=== PATIENT | female | born 1955 | race African-American/Black ===

== ENCOUNTER 2021-08-04 22:49 | Inpatient (IN) | payer MEDICARE, OTHER ==
[~2021-08-04] VITALS: Ht 152.4 cm; Wt 45.4 kg
[2021-08-04] MEDS ORDERED: ZIPRASIDONE MESYLATE 20 MG VIAL IM ONE ×2 (23:09→23:15)
[2021-08-04] MEDS ORDERED: CITA20TA16 PO (23:39)
[2021-08-04] MEDS ORDERED: BENZ1TAB7 PO (23:39)
[2021-08-04] MEDS ORDERED: MELA3TAB52 PO (23:39)
[2021-08-04] MEDS ORDERED: FAMO20TA8 PO (23:39)
[2021-08-04] MEDS ORDERED: TRAZ-182 PO (23:39)
[2021-08-04] MEDS ORDERED: METF-495 PO (23:39)
[2021-08-04] MEDS ORDERED: VALP250C3 PO (23:39)
[2021-08-04] MEDS ORDERED: QUET25TA PO (23:39)
[2021-08-04] MEDS ORDERED: DONE10TA44 PO (23:39)
[2021-08-04] MEDS ORDERED: LISI10TA29 PO (23:39)
[2021-08-04] MEDS ORDERED: AMLO-212 PO (23:39)
[2021-08-04 23:50] LABS: HEMATOCRIT 37.1 % (31.2-41.9); MEAN CORPUSCULAR HEMOGLOBIN 32.5 uug (24.7-32.8); MEAN CORPUSCULAR VOLUME 98.5 fL (75.5-95.3); PLATELET COUNT (AUTO) 172 K/uL (179-408)
[2021-08-05 00:02] LABS: ALANINE AMINOTRANSFERASE 46 U/L (14-59); ALKALINE PHOSPHATASE 73 U/L (50-136); ASPARTATE AMINOTRANSFERASE 34 U/L (15-37); BILIRUBIN,DIRECT 0.1 mg/dL (0.0-0.2); BILIRUBIN,TOTAL 0.1 mg/dL (0.2-1.0); CARBON DIOXIDE 26 mmol/L (21-32); CHLORIDE 105 mmol/L (98-107); CREATININE 0.9 mg/dL (0.6-1.3); GLUCOSE 136 mg/dL (74-106); TOTAL PROTEIN, SERUM 7.6 g/dL (6.4-8.2); UREA NITROGEN, BLOOD 24 mg/dL (7-18)
[2021-08-05 00:03] LABS: ACETAMINOPHEN < 2.0 ug/mL (10-30)
[2021-08-05 00:19] LABS: ETHANOL < 3 MG/DL (0-0)
[2021-08-05] MEDS ORDERED: CLONIDINE HCL 0.1 MG TABLET PO ONE (02:15)
[2021-08-05] MEDS ORDERED: CLONIDINE HCL 0.1 MG TABLET ONE (02:35)
[2021-08-05] MEDS ORDERED: MAG HYDROX/AL HYDROX/SIMETH 30 ML LIQUID UDC PO PRN (03:30)
[2021-08-05] MEDS ORDERED: ZOLPIDEM 5 MG TABLET PO PRN (03:30)
[2021-08-05] MEDS ORDERED: BLOOD SUGAR DIAGNOSTIC 1 EACH STRIP VI ONE (03:30)
[2021-08-05] MEDS ORDERED: MAGNESIUM HYDROXIDE 30 ML LIQUID UDC PO PRN (03:30)
[2021-08-05 03:43] VITALS: BP 154/84
[2021-08-05] MEDS ORDERED: METF-440 PO (06:46)
[2021-08-05 07:45] VITALS: BP 109/55
[2021-08-05] MEDS: DONEPEZIL 10 MG TABLET PO SCH (08:05)
[2021-08-05] MEDS: METFORMIN HCL 500 MG TABLET PO SCH ×2 (08:05→16:23)
[2021-08-05] MEDS: AMLODIPINE 5 MG TABLET PO SCH (08:05)
[2021-08-05] MEDS: FAMOTIDINE 20 MG TABLET PO SCH ×2 (08:05→16:24)
[2021-08-05] MEDS: LISINOPRIL 10 MG TABLET PO SCH ×2 (08:06→16:24)
[2021-08-05] MEDS ORDERED: VALPROIC ACID 250 MG CAPSULE PO SCH (09:00)
[2021-08-05] MEDS ORDERED: METFORMIN XR 500 MG TAB.SR.24H PO SCH (09:00)
[2021-08-05] MEDS: VALPROIC ACID 250 MG CAPSULE PO SCH ×2 (12:00→20:21)
[2021-08-05] MEDS: QUETIAPINE FUMARATE 25 MG TABLET PO SCH ×2 (12:12→21:00)
[2021-08-05] MEDS: busPIRone 5 MG TABLET PO SCH ×2 (12:13→16:24)
[2021-08-05 15:40] VITALS: BP_SYST 111; BP_SYST 144; BP_DIAS 40; BP_DIAS 76
[2021-08-05 19:54] VITALS: BP 157/82
[2021-08-05] MEDS: LORAZEPAM 0.5 MG TABLET PO PRN (23:08)
[2021-08-06 07:30] VITALS: BP 162/78
[2021-08-06] MEDS: LISINOPRIL 10 MG TABLET PO SCH ×2 (08:15→16:51)
[2021-08-06] MEDS: busPIRone 5 MG TABLET PO SCH ×3 (08:15→16:51)
[2021-08-06] MEDS: FAMOTIDINE 20 MG TABLET PO SCH ×2 (08:15→16:50)
[2021-08-06] MEDS: DONEPEZIL 10 MG TABLET PO SCH (08:15)
[2021-08-06] MEDS: VALPROIC ACID 250 MG CAPSULE PO SCH ×2 (08:16→16:51)
[2021-08-06] MEDS: AMLODIPINE 5 MG TABLET PO SCH (08:17)
[2021-08-06 08:19] LABS: THYROID STIMULATING HORMONE 0.745 mIU/mL (0.358-3.740)
[2021-08-06] MEDS: QUETIAPINE FUMARATE 25 MG TABLET PO SCH ×3 (09:11→22:04)
[2021-08-06 15:02] VITALS: BP 151/76
[2021-08-06 20:33] VITALS: BP 107/68
[2021-08-07 07:39] VITALS: BP 142/71
[2021-08-07] MEDS: CYANOCOBALAMIN 1,000 MCG TABLET PO SCH (08:50)
[2021-08-07] MEDS: FAMOTIDINE 20 MG TABLET PO SCH ×2 (08:50→16:54)
[2021-08-07] MEDS: busPIRone 5 MG TABLET PO SCH ×3 (08:50→16:54)
[2021-08-07] MEDS: LISINOPRIL 10 MG TABLET PO SCH ×2 (08:50→16:54)
[2021-08-07] MEDS: DONEPEZIL 10 MG TABLET PO SCH (08:50)
[2021-08-07] MEDS: QUETIAPINE FUMARATE 25 MG TABLET PO SCH ×3 (08:50→20:59)
[2021-08-07] MEDS: VALPROIC ACID 250 MG CAPSULE PO SCH ×2 (08:51→16:55)
[2021-08-07] MEDS: AMLODIPINE 5 MG TABLET PO SCH (08:51)
[2021-08-07 16:05] VITALS: BP 141/74
[2021-08-07 20:01] VITALS: BP 111/69
[2021-08-08 07:56] VITALS: BP 127/53
[2021-08-08] MEDS: CYANOCOBALAMIN 1,000 MCG TABLET PO SCH (08:20)
[2021-08-08] MEDS: FAMOTIDINE 20 MG TABLET PO SCH ×2 (08:20→16:49)
[2021-08-08] MEDS: DONEPEZIL 10 MG TABLET PO SCH (08:21)
[2021-08-08] MEDS: LISINOPRIL 10 MG TABLET PO SCH ×2 (08:21→16:50)
[2021-08-08] MEDS: AMLODIPINE 5 MG TABLET PO SCH (08:21)
[2021-08-08] MEDS: busPIRone 5 MG TABLET PO SCH ×3 (08:21→16:50)
[2021-08-08] MEDS: QUETIAPINE FUMARATE 25 MG TABLET PO SCH ×3 (08:21→20:04)
[2021-08-08] MEDS: VALPROIC ACID 250 MG CAPSULE PO SCH ×2 (08:23→16:51)
[2021-08-08 16:13] VITALS: BP 132/56
[2021-08-08 19:58] VITALS: BP 120/62
[2021-08-08] MEDS: LORAZEPAM 0.5 MG TABLET PO PRN (21:30)
[2021-08-09 07:30] VITALS: BP 158/75
[2021-08-09] MEDS: DONEPEZIL 10 MG TABLET PO SCH (10:30)
[2021-08-09] MEDS: CYANOCOBALAMIN 1,000 MCG TABLET PO SCH (10:30)
[2021-08-09] MEDS: FAMOTIDINE 20 MG TABLET PO SCH ×2 (10:30→17:56)
[2021-08-09] MEDS: AMLODIPINE 5 MG TABLET PO SCH (10:30)
[2021-08-09] MEDS: busPIRone 5 MG TABLET PO SCH ×3 (10:30→17:55)
[2021-08-09] MEDS: QUETIAPINE FUMARATE 25 MG TABLET PO SCH ×3 (10:31→20:33)
[2021-08-09] MEDS: GLUCERNA SHAKE 237 ML CAN PO SCH (10:38)
[2021-08-09] MEDS: LISINOPRIL 10 MG TABLET PO SCH ×2 (11:17→17:54)
[2021-08-09] MEDS: VALPROIC ACID 250 MG CAPSULE PO SCH ×2 (13:29→17:55)
[2021-08-09] MEDS: LORAZEPAM 0.5 MG TABLET PO PRN (15:01)
[2021-08-09] MEDS: ACETAMINOPHEN 325 MG TABLET PO PRN (15:01)
[2021-08-09 16:00] VITALS: BP 139/84
[2021-08-09 20:13] VITALS: BP 135/73
[2021-08-10 08:04] VITALS: BP 138/78
[2021-08-10] MEDS: CYANOCOBALAMIN 1,000 MCG TABLET PO SCH (08:39)
[2021-08-10] MEDS: LISINOPRIL 10 MG TABLET PO SCH ×2 (08:39→17:50)
[2021-08-10] MEDS: busPIRone 5 MG TABLET PO SCH ×3 (08:39→17:50)
[2021-08-10] MEDS: FAMOTIDINE 20 MG TABLET PO SCH ×2 (08:40→17:50)
[2021-08-10] MEDS: AMLODIPINE 5 MG TABLET PO SCH (08:40)
[2021-08-10] MEDS: LORAZEPAM 0.5 MG TABLET PO PRN ×2 (08:40→15:09)
[2021-08-10] MEDS: DONEPEZIL 10 MG TABLET PO SCH (08:40)
[2021-08-10] MEDS: QUETIAPINE FUMARATE 25 MG TABLET PO SCH ×3 (08:40→20:04)
[2021-08-10] MEDS: VALPROIC ACID 250 MG CAPSULE PO SCH (08:42)
[2021-08-10] MEDS: GLUCERNA SHAKE 237 ML CAN PO SCH (08:43)
[2021-08-10 17:17] VITALS: BP 139/71
[2021-08-10] MEDS: DIVALPROEX SPRINKLE 125 MG CAP.SPRINK PO SCH (17:50)
[2021-08-10 19:55] VITALS: BP 136/77
[2021-08-11 07:30] VITALS: BP 149/71
[2021-08-11] MEDS: LORAZEPAM 0.5 MG TABLET PO PRN ×2 (07:47→14:51)
[2021-08-11] MEDS: busPIRone 5 MG TABLET PO SCH ×3 (08:26→16:51)
[2021-08-11] MEDS: DONEPEZIL 10 MG TABLET PO SCH (08:26)
[2021-08-11] MEDS: FAMOTIDINE 20 MG TABLET PO SCH ×2 (08:26→16:51)
[2021-08-11] MEDS: QUETIAPINE FUMARATE 25 MG TABLET PO SCH ×3 (08:26→20:03)
[2021-08-11] MEDS: DIVALPROEX SPRINKLE 125 MG CAP.SPRINK PO SCH ×2 (08:26→16:51)
[2021-08-11] MEDS: CYANOCOBALAMIN 1,000 MCG TABLET PO SCH (08:26)
[2021-08-11] MEDS: LISINOPRIL 10 MG TABLET PO SCH ×2 (08:27→16:52)
[2021-08-11] MEDS: AMLODIPINE 5 MG TABLET PO SCH (08:27)
[2021-08-11] MEDS: GLUCERNA SHAKE 237 ML CAN PO SCH (08:28)
[2021-08-11 16:00] VITALS: BP 134/59
[2021-08-11 19:58] VITALS: BP 145/78
[2021-08-12 07:43] VITALS: BP 148/76
[2021-08-12] MEDS: LORAZEPAM 0.5 MG TABLET PO PRN ×2 (09:03→21:38)
[2021-08-12] MEDS: AMLODIPINE 5 MG TABLET PO SCH (09:41)
[2021-08-12] MEDS: DONEPEZIL 10 MG TABLET PO SCH (09:41)
[2021-08-12] MEDS: CYANOCOBALAMIN 1,000 MCG TABLET PO SCH (09:41)
[2021-08-12] MEDS: busPIRone 5 MG TABLET PO SCH ×3 (09:41→16:18)
[2021-08-12] MEDS: DIVALPROEX SPRINKLE 125 MG CAP.SPRINK PO SCH ×2 (09:42→16:18)
[2021-08-12] MEDS: QUETIAPINE FUMARATE 25 MG TABLET PO SCH ×2 (09:42→20:10)
[2021-08-12] MEDS: LISINOPRIL 10 MG TABLET PO SCH ×2 (09:43→16:19)
[2021-08-12] MEDS: FAMOTIDINE 20 MG TABLET PO SCH ×2 (09:43→16:18)
[2021-08-12] MEDS: GLUCERNA SHAKE 237 ML CAN PO SCH (09:44)
[2021-08-12] MEDS: ACETAMINOPHEN 325 MG TABLET PO PRN ×2 (12:25→21:39)
[2021-08-12 16:25] VITALS: BP 127/68
[2021-08-12 20:01] VITALS: BP 132/66
[2021-08-13 07:30] VITALS: BP 141/63
[2021-08-13] MEDS: QUETIAPINE FUMARATE 25 MG TABLET PO SCH ×2 (08:43→20:01)
[2021-08-13] MEDS: FAMOTIDINE 20 MG TABLET PO SCH ×2 (08:43→17:07)
[2021-08-13] MEDS: CYANOCOBALAMIN 1,000 MCG TABLET PO SCH (08:43)
[2021-08-13] MEDS: DIVALPROEX SPRINKLE 125 MG CAP.SPRINK PO SCH ×2 (08:44→17:07)
[2021-08-13] MEDS: DONEPEZIL 10 MG TABLET PO SCH (08:44)
[2021-08-13] MEDS: busPIRone 5 MG TABLET PO SCH ×3 (08:44→17:07)
[2021-08-13] MEDS: LISINOPRIL 10 MG TABLET PO SCH ×2 (08:44→17:08)
[2021-08-13] MEDS: AMLODIPINE 5 MG TABLET PO SCH (08:44)
[2021-08-13] MEDS: GLUCERNA SHAKE 237 ML CAN PO SCH (08:45)
[2021-08-13] MEDS: LORAZEPAM 0.5 MG TABLET PO PRN ×2 (12:44→21:30)
[2021-08-13] MEDS: ACETAMINOPHEN 325 MG TABLET PO PRN (12:44)
[2021-08-13 15:00] VITALS: BP 129/72
[2021-08-13 19:50] VITALS: BP 144/76
[2021-08-14 07:42] VITALS: BP 124/59
[2021-08-14] MEDS: CYANOCOBALAMIN 1,000 MCG TABLET PO SCH (08:15)
[2021-08-14] MEDS: FAMOTIDINE 20 MG TABLET PO SCH ×2 (08:15→16:51)
[2021-08-14] MEDS: DONEPEZIL 10 MG TABLET PO SCH (08:15)
[2021-08-14] MEDS: DIVALPROEX SPRINKLE 125 MG CAP.SPRINK PO SCH ×2 (08:15→16:39)
[2021-08-14] MEDS: busPIRone 5 MG TABLET PO SCH ×3 (08:15→16:39)
[2021-08-14] MEDS: QUETIAPINE FUMARATE 25 MG TABLET PO SCH ×2 (08:15→20:17)
[2021-08-14] MEDS: AMLODIPINE 5 MG TABLET PO SCH (08:16)
[2021-08-14] MEDS: LISINOPRIL 10 MG TABLET PO SCH ×2 (08:16→16:55)
[2021-08-14 08:17] VITALS: BP 128/62
[2021-08-14] MEDS: GLUCERNA SHAKE 237 ML CAN PO SCH (09:00)
[2021-08-14] MEDS: LORAZEPAM 0.5 MG TABLET PO PRN (10:16)
[2021-08-14 17:06] VITALS: BP 158/80
[2021-08-14 21:01] VITALS: BP 116/77
[2021-08-15] MEDS: LORAZEPAM 0.5 MG TABLET PO PRN ×2 (00:59→15:16)
[2021-08-15 07:48] VITALS: BP 142/80
[2021-08-15] MEDS: CYANOCOBALAMIN 1,000 MCG TABLET PO SCH (08:39)
[2021-08-15] MEDS: DONEPEZIL 10 MG TABLET PO SCH (08:39)
[2021-08-15] MEDS: DIVALPROEX SPRINKLE 125 MG CAP.SPRINK PO SCH ×2 (08:39→16:19)
[2021-08-15] MEDS: busPIRone 5 MG TABLET PO SCH ×3 (08:39→16:19)
[2021-08-15] MEDS: FAMOTIDINE 20 MG TABLET PO SCH ×2 (08:39→16:19)
[2021-08-15] MEDS: AMLODIPINE 5 MG TABLET PO SCH (08:40)
[2021-08-15] MEDS: LISINOPRIL 10 MG TABLET PO SCH ×2 (08:40→16:19)
[2021-08-15] MEDS: GLUCERNA SHAKE 237 ML CAN PO SCH (08:43)
[2021-08-15 16:45] VITALS: BP 140/75
[2021-08-15 20:00] VITALS: BP 148/78
[2021-08-15] MEDS: QUETIAPINE FUMARATE 25 MG TABLET PO SCH (20:06)
[2021-08-15] MEDS: MELATONIN 3 MG TABLET PO SCH (20:06)
[2021-08-16 07:30] VITALS: BP 143/65
[2021-08-16] MEDS: DIVALPROEX SPRINKLE 125 MG CAP.SPRINK PO SCH ×3 (08:56→17:08)
[2021-08-16] MEDS: DONEPEZIL 10 MG TABLET PO SCH (08:56)
[2021-08-16] MEDS: FAMOTIDINE 20 MG TABLET PO SCH ×2 (08:56→17:08)
[2021-08-16] MEDS: CYANOCOBALAMIN 1,000 MCG TABLET PO SCH (08:57)
[2021-08-16] MEDS: busPIRone 5 MG TABLET PO SCH ×3 (08:57→17:08)
[2021-08-16] MEDS: LISINOPRIL 10 MG TABLET PO SCH ×2 (09:05→17:09)
[2021-08-16] MEDS: AMLODIPINE 5 MG TABLET PO SCH (09:06)
[2021-08-16] MEDS: GLUCERNA SHAKE 237 ML CAN PO SCH (09:29)
[2021-08-16 16:00] VITALS: BP 159/78
[2021-08-16 20:11] VITALS: BP 162/75
[2021-08-16] MEDS: MELATONIN 3 MG TABLET PO SCH (20:27)
[2021-08-16] MEDS: QUETIAPINE FUMARATE 25 MG TABLET PO SCH (20:27)
[2021-08-17 07:30] VITALS: BP 145/83
[2021-08-17] MEDS: AMLODIPINE 5 MG TABLET PO SCH (08:30)
[2021-08-17] MEDS: DIVALPROEX SPRINKLE 125 MG CAP.SPRINK PO SCH ×3 (08:30→16:40)
[2021-08-17] MEDS: FAMOTIDINE 20 MG TABLET PO SCH ×2 (08:31→16:40)
[2021-08-17] MEDS: CYANOCOBALAMIN 1,000 MCG TABLET PO SCH (08:31)
[2021-08-17] MEDS: busPIRone 5 MG TABLET PO SCH ×3 (08:31→16:40)
[2021-08-17] MEDS: DONEPEZIL 10 MG TABLET PO SCH (08:31)
[2021-08-17] MEDS: LISINOPRIL 10 MG TABLET PO SCH ×2 (08:31→16:40)
[2021-08-17] MEDS: GLUCERNA SHAKE 237 ML CAN PO SCH (09:03)
[2021-08-17] MEDS: LORAZEPAM 0.5 MG TABLET PO PRN ×2 (13:13→21:55)
[2021-08-17 13:57] VITALS: BP 145/83
[2021-08-17 16:00] VITALS: BP 147/72
[2021-08-17 20:00] VITALS: BP 148/74
[2021-08-17] MEDS: MELATONIN 3 MG TABLET PO SCH (20:13)
[2021-08-17] MEDS: QUETIAPINE FUMARATE 25 MG TABLET PO SCH (20:13)
[2021-08-18 07:30] VITALS: BP 170/75
[2021-08-18] MEDS: DONEPEZIL 10 MG TABLET PO SCH (08:00)
[2021-08-18] MEDS: busPIRone 5 MG TABLET PO SCH ×3 (08:00→16:14)
[2021-08-18] MEDS: AMLODIPINE 5 MG TABLET PO SCH (08:00)
[2021-08-18] MEDS: CYANOCOBALAMIN 1,000 MCG TABLET PO SCH (08:00)
[2021-08-18] MEDS: GLUCERNA SHAKE 237 ML CAN PO SCH (08:01)
[2021-08-18] MEDS: DIVALPROEX SPRINKLE 125 MG CAP.SPRINK PO SCH ×3 (08:01→16:13)
[2021-08-18] MEDS: LISINOPRIL 10 MG TABLET PO SCH ×2 (08:03→16:14)
[2021-08-18] MEDS: FAMOTIDINE 20 MG TABLET PO SCH ×2 (08:03→16:14)
[2021-08-18 09:08] VITALS: BP 157/73
[2021-08-18 13:30] VITALS: BP 142/87
[2021-08-18] MEDS: LORAZEPAM 0.5 MG TABLET PO PRN ×2 (13:54→21:56)
[2021-08-18 16:00] VITALS: BP 138/72
[2021-08-18 20:00] VITALS: BP 148/75
[2021-08-18] MEDS: QUETIAPINE FUMARATE 25 MG TABLET PO SCH (20:06)
[2021-08-18] MEDS: MELATONIN 3 MG TABLET PO SCH (20:07)
[2021-08-19 08:33] VITALS: BP 110/55
[2021-08-19] MEDS: AMLODIPINE 5 MG TABLET PO SCH (09:00)
[2021-08-19] MEDS: LISINOPRIL 10 MG TABLET PO SCH ×2 (09:00→16:33)
[2021-08-19] MEDS: CYANOCOBALAMIN 1,000 MCG TABLET PO SCH (09:08)
[2021-08-19] MEDS: DIVALPROEX SPRINKLE 125 MG CAP.SPRINK PO SCH ×3 (09:08→16:35)
[2021-08-19] MEDS: DONEPEZIL 10 MG TABLET PO SCH (09:09)
[2021-08-19] MEDS: FAMOTIDINE 20 MG TABLET PO SCH ×2 (09:09→16:34)
[2021-08-19] MEDS: busPIRone 5 MG TABLET PO SCH ×3 (09:09→16:33)
[2021-08-19] MEDS: GLUCERNA SHAKE 237 ML CAN PO SCH (09:21)
[2021-08-19 16:18] VITALS: BP 166/80
[2021-08-19] MEDS: LORAZEPAM 0.5 MG TABLET PO PRN (16:34)
[2021-08-19 20:00] VITALS: BP 144/77
[2021-08-19] MEDS: MELATONIN 3 MG TABLET PO SCH (20:16)
[2021-08-19] MEDS: QUETIAPINE FUMARATE 25 MG TABLET PO SCH (20:17)
[2021-08-20 07:30] VITALS: BP 140/75
[2021-08-20] MEDS: FAMOTIDINE 20 MG TABLET PO SCH ×2 (08:44→16:49)
[2021-08-20] MEDS: AMLODIPINE 5 MG TABLET PO SCH (08:45)
[2021-08-20] MEDS: LISINOPRIL 10 MG TABLET PO SCH ×2 (08:45→16:48)
[2021-08-20] MEDS: DONEPEZIL 10 MG TABLET PO SCH (08:46)
[2021-08-20] MEDS: DIVALPROEX SPRINKLE 125 MG CAP.SPRINK PO SCH ×3 (08:46→16:49)
[2021-08-20] MEDS: CYANOCOBALAMIN 1,000 MCG TABLET PO SCH (08:46)
[2021-08-20] MEDS ORDERED: busPIRone 5 MG TABLET PO SCH (09:00)
[2021-08-20] MEDS: busPIRone 10 MG TABLET PO SCH ×3 (09:41→16:49)
[2021-08-20] MEDS: FOLIC ACID 1 MG TABLET PO SCH (09:41)
[2021-08-20] MEDS: GLUCERNA SHAKE 237 ML CAN PO SCH (09:44)
[2021-08-20] MEDS: LORAZEPAM 0.5 MG TABLET PO PRN (13:24)
[2021-08-20 15:20] VITALS: BP 143/65
[2021-08-20] MEDS ORDERED: OLANZAPINE 10 MG VIAL IM ONE (18:40)
[2021-08-20 20:10] VITALS: BP 133/60
[2021-08-20] MEDS: MELATONIN 3 MG TABLET PO SCH (20:37)
[2021-08-20] MEDS: QUETIAPINE FUMARATE 25 MG TABLET PO SCH (20:38)
[2021-08-21 07:30] VITALS: BP 118/72
[2021-08-21 07:55] LABS: HEMATOCRIT 38.5 % (31.2-41.9); MEAN CORPUSCULAR HEMOGLOBIN 32.9 uug (24.7-32.8); MEAN CORPUSCULAR VOLUME 99.3 fL (75.5-95.3); PLATELET COUNT (AUTO) 221 K/uL (179-408)
[2021-08-21 08:14] LABS: CREATININE 0.8 mg/dL (0.6-1.3); POTASSIUM 4.2 mmol/L (3.5-5.1)
[2021-08-21] MEDS: FAMOTIDINE 20 MG TABLET PO SCH ×2 (08:40→17:04)
[2021-08-21] MEDS: AMLODIPINE 5 MG TABLET PO SCH (08:40)
[2021-08-21] MEDS: LISINOPRIL 10 MG TABLET PO SCH ×2 (08:40→17:05)
[2021-08-21] MEDS: FOLIC ACID 1 MG TABLET PO SCH (08:40)
[2021-08-21] MEDS: CYANOCOBALAMIN 1,000 MCG TABLET PO SCH (08:41)
[2021-08-21] MEDS: busPIRone 10 MG TABLET PO SCH ×3 (08:41→17:04)
[2021-08-21] MEDS: DONEPEZIL 10 MG TABLET PO SCH (08:41)
[2021-08-21] MEDS: DIVALPROEX SPRINKLE 125 MG CAP.SPRINK PO SCH ×3 (08:42→17:04)
[2021-08-21] MEDS: GLUCERNA SHAKE 237 ML CAN PO SCH (08:53)
[2021-08-21] MEDS: LORAZEPAM 0.5 MG TABLET PO PRN ×2 (13:52→20:33)
[2021-08-21 16:00] VITALS: BP 136/78
[2021-08-21 20:01] VITALS: BP 150/59
[2021-08-21] MEDS: MELATONIN 3 MG TABLET PO SCH (20:12)
[2021-08-21] MEDS: QUETIAPINE FUMARATE 25 MG TABLET PO SCH (20:13)
[2021-08-21] MEDS: ACETAMINOPHEN 325 MG TABLET PO PRN (20:34)
[2021-08-22 07:46] VITALS: BP 132/65
[2021-08-22] MEDS: busPIRone 10 MG TABLET PO SCH ×2 (08:41→12:25)
[2021-08-22] MEDS: DIVALPROEX SPRINKLE 125 MG CAP.SPRINK PO SCH ×2 (08:41→12:25)
[2021-08-22] MEDS: FOLIC ACID 1 MG TABLET PO SCH (08:42)
[2021-08-22] MEDS: CYANOCOBALAMIN 1,000 MCG TABLET PO SCH (08:42)
[2021-08-22] MEDS: DONEPEZIL 10 MG TABLET PO SCH (08:42)
[2021-08-22] MEDS: FAMOTIDINE 20 MG TABLET PO SCH (08:42)
[2021-08-22] MEDS: LISINOPRIL 10 MG TABLET PO SCH (08:42)
[2021-08-22 08:43] VITALS: BP 132/65
[2021-08-22] MEDS: AMLODIPINE 5 MG TABLET PO SCH (08:43)
[2021-08-22] MEDS: GLUCERNA SHAKE 237 ML CAN PO SCH (08:43)
[2021-08-22] MEDS: LORAZEPAM 0.5 MG TABLET PO PRN (11:42)
== END 2021-08-22 13:00 | DRG 885 ==
LOC: ER 22:56 → GPS 08-05 03:03
PROVIDERS: ADMIT Psychiatry & Neurology Psychiatry; ATTEND Internal Medicine
DX: F29 Unspecified psychosis not due to a substance or known physiological condition (principal); R40.2342 Coma scale, best motor response, flexion withdrawal, at arrival to emergency department; F02.81 Dementia in other diseases classified elsewhere, unspecified severity, with behavioral disturbance; Z68.1 Body mass index [BMI] 19.9 or less, adult; E44.1 Mild protein-calorie malnutrition; R40.2242 Coma scale, best verbal response, confused conversation, at arrival to emergency department; R40.2142 Coma scale, eyes open, spontaneous, at arrival to emergency department; G31.83 Neurocognitive disorder with Lewy bodies; D75.89 Other specified diseases of blood and blood-forming organs; E11.9 Type 2 diabetes mellitus without complications; I10 Essential (primary) hypertension; Z20.822 Contact with and (suspected) exposure to COVID-19; R62.7 Adult failure to thrive; F25.9 Schizoaffective disorder, unspecified; E53.8 Deficiency of other specified B group vitamins; S06.5X0D Traumatic subdural hemorrhage without loss of consciousness, subsequent encounter; X58.XXXD Exposure to other specified factors, subsequent encounter; Z79.84 Long term (current) use of oral hypoglycemic drugs
CPT/HCPCS: 36415; 70450; 71045; 80164; 84443; 85025; 93005; 97161; A4663; G0480; J2358; J3486